=== PATIENT | male | born 1990 | race Caucasian/White ===

== ENCOUNTER 2018-04-28 20:40 | Emergency (ER) | payer OTHER ==
[2018-04-28 20:54] VITALS: BP 134/81; PULSE 115; RESP 18; TEMP 100
[2018-04-28] MEDS ORDERED: LIDOCAINE 1% INJ 10MG/ML (20 ML MDV) SQ ONE (21:19)
[2018-04-28] MEDS ORDERED: ACETAMINOPHEN TAB 500 MG TAB PO STA (21:20)
--- NOTE | 2018-04-28 21:32 | ED ---
Skin/Abscess/FB HPI - General Chief complaint: Skin/Abscess/Foreign Body Stated complaint: Arm abscess Time Seen by Provider: 04/28/18 21:12 Source: patient, RN notes reviewed Mode of arrival: ambulatory Limitations: no limitations - History of Present Illness Initial comments: This is a 28-year-old male who presents to the emergency department with chief complaint of right arm abscess. Patient reports developing abscess on his right forearm 3-5 days ago. He states that he has had a fever for the past few days. He denies any discharge from the abscess. States he has had abscess in the past. Patient has been belligerent and a poor historian. His is at bedside. She states that he is currently prescribed Suboxone from Dr. Jurado in [place]. Patient has a history of opiate abuse. Denies chest pain or shortness of breath, abdominal pain, nausea or vomiting. - Related Data Allergies Allergy/AdvReac Type Severity Reaction Status Date / Time No Known Allergies Allergy Verified 04/28/18 21:34 Review of Systems ROS Statement: Those systems with pertinent positive or pertinent negative responses have been documented in the HPI. ROS Other: All systems not noted in ROS Statement are negative. Past Medical History Past Medical History: Seizure Disorder History of Any Multi-Drug Resistant Organisms: None Reported Past Surgical History: No Surgical Hx Reported Past Psychological History: Anxiety, Bipolar, Depression, Panic Disorder Smoking Status: Former smoker Past Alcohol Use History: None Reported Past Drug Use History: Marijuana General Exam - General Exam Comments Initial Comments: General: Awake and alert, well-developed; in no apparent distress. HEENT: Head atraumatic, normocephalic. Pupils are equal, round and reactive to light. Extraocular movements intact. Oropharynx moist without erythema or exudate. Neck: Supple. Normal ROM. Cardiovascular: Regular rate and rhythm. No murmurs, rubs or gallops. Chest symmetrical. Respiratory: Lungs clear to auscultation bilaterally. No wheezes, rales or rhonchi. Normal respiratory effort with no use of accessory muscles. Musculoskeletal: Normal ROM bilateral upper and lower extremities. Skin: Approximately 4 cm x 4 cm abscess to the proximal right forearm with surrounding erythema down to the right wrist and distal one third of the right upper arm. No active drainage. Pitting edema and warmth of the right arm is noted. Sensation is intact. Radial pulses are 2+ equal and palpable bilaterally. Neurological: Alert and oriented x3. CN II-XII grossly intact. Speech is fluent and answers are appropriate. No focal neuro deficits. Psychiatric: Patient is belligerent, rude and argumentative. Limitations: no limitations Course Vital Signs 04/28/18 20:47 Temperature 100.0 F H Pulse Rate 115 H Respiratory 18 Rate Blood Pressure 134/81 O2 Sat by Pulse 99 Oximetry Procedures - Incision & Drainage Consent Obtained: verbal consent Time Out Performed?: No Indication: abscess Site: upper extremity (right forearm ) Size (cm): 4 (4x4 cm abscess right ventral forearm ) Anesthetic Used: lidocaine 1% Amount (mLs): 3 Scalpel Used: #15 I&D Drainage Obtained: Pus, Blood Culture Obtained?: Yes Patient Tolerated Procedure: well, no complications Medical Decision Making - Medical Decision Making This is a 28-year-old male who presents to the emergency department with chief complaint of abscess. Patient is belligerent, rude and argumentative. Patient yelled numerous times at myself and the nurse. is at bedside. She is pleasant and forthcoming with patient's history. She states the patient does have a history of opiate abuse and is currently taking Suboxone. Patient requests narcotic pain medication, however he is on a pain contract. He is given Tylenol and Toradol in the emergency department. Patient became very angry and upset about this and wanted only narcotic pain medication. He states he has a broad knowledge of medication and has never heard of Toradol. After calming down, patient consented to Toradol via IV. There is a large abscess with surrounding cellulitis on the right forearm. I&D was performed and wound culture obtained. This is pending. An x-ray of the right forearm was ordered to rule out osteomyelitis, however patient refuses. Throughout emergency department stay, patient made multiple comments about leaving AGAINST MEDICAL ADVICE. Patient was found to have a bottle of Valium in his pocket. He was counting them out on his chest. The nurse noticed this and told patient he was not allowed to have them here in the hospital. Patient again became very angry and upset and said he was signing out AGAINST MEDICAL ADVICE. I strongly advised admission to the hospital for IV antibiotics. Risks of leaving AMA were discussed including sepsis, loss of limb, loss of life. Patient refuses to stay. Condition is fair. Patient escorted out of the emergency department by security. - Lab Data Result diagrams: 04/28/18 21:29 04/28/18 21:29 Lab Results 04/28/18 04/28/18 04/28/18 Range/Units 21:29 21:29 21:29 WBC 14.8 H (3.8-10.6) k/uL RBC 4.40 (4.30-5.90) m/uL Hgb 13.8 (13.0-17.5) gm/dL Hct 41.3 (39.0-53.0) % MCV 93.9 (80.0-100.0) fL MCH 31.4 (25.0-35.0) pg MCHC 33.4 (31.0-37.0) g/dL RDW 13.2 (11.5-15.5) % Plt Count 268 (150-450) k/uL Neutrophils % 83 % Lymphocytes % 9 % Monocytes % 7 % Eosinophils % 1 % Basophils % 0 % Neutrophils # 12.3 H (1.3-7.7) k/uL Lymphocytes # 1.3 (1.0-4.8) k/uL Monocytes # 1.0 (0-1.0) k/uL Eosinophils # 0.1 (0-0.7) k/uL Basophils # 0.0 (0-0.2) k/uL Sodium 139 (137-145) mmol/L Potassium 4.9 (3.5-5.1) mmol/L Chloride 106 (98-107) mmol/L Carbon Dioxide 20 L (22-30) mmol/L Anion Gap 13 mmol/L BUN 16 (9-20) mg/dL Creatinine 1.10 (0.66-1.25) mg/dL Est GFR (CKD-EPI)AfAm >90 (>60 ml/min/1.73 sqM) Est GFR (CKD-EPI)NonAf 90 (>60 ml/min/1.73 sqM) Glucose 118 H (74-99) mg/dL Plasma Lactic Acid Saroj 1.3 (0.7-2.0) mmol/L Calcium 9.5 (8.4-10.2) mg/dL Total Bilirubin 0.4 (0.2-1.3) mg/dL AST 168 H (17-59) U/L ALT 126 H (21-72) U/L Alkaline Phosphatase 110 (38-126) U/L Total Protein 8.0 (6.3-8.2) g/dL Albumin 4.4 (3.5-5.0) g/dL Disposition Clinical Impression: Abscess of arm, right Disposition: Left Against Medical Advice Condition: Fair Instructions: Cellulitis (ED), Abscess (ED) Is patient prescribed a controlled substance at d/c from ED?: No Referrals: None,Stated [REFERRING] - 1-2 days Time of Disposition: 22:51
[2018-04-28 21:43] LABS: Basophils % (A) 0 %; Eosinophils # (A) 0.1 k/uL (0-0.7); Eosinophils % (A) 1 %; HCT 41.3 % (39.0-53.0); HGB 13.8 gm/dL (13.0-17.5); Lymphocytes # (A) 1.3 k/uL (1.0-4.8); Lymphocytes % (A) 9 %; MCH 31.4 pg (25.0-35.0); MCHC 33.4 g/dL (31.0-37.0); MCV 93.9 fL (80.0-100.0); Mean Platelet Volume 7.3; Monocytes % (A) 7 %; Neutrophils # (A) 12.3 k/uL (1.3-7.7); Neutrophils % (A) 83 %; Platelet Count 268 k/uL (150-450); RDW 13.2 % (11.5-15.5); WBC 14.8 k/uL (3.8-10.6)
[2018-04-28 21:53] LABS: ALT 126 U/L (21-72); AST 168 U/L (17-59); Albumin 4.4 g/dL (3.5-5.0); Alkaline Phosphatase 110 U/L (38-126); Anion Gap 13 mmol/L; Calcium 9.5 mg/dL (8.4-10.2); Carbon Dioxide 20 mmol/L (22-30); Chloride 106 mmol/L (98-107); Glucose 118 mg/dL (74-99); Potassium 4.9 mmol/L (3.5-5.1); Sodium 139 mmol/L (137-145); Total Bilirubin 0.4 mg/dL (0.2-1.3)
[2018-04-28 21:56] LABS: Blood Urea Nitrogen 16 mg/dL (9-20)
[2018-04-28] MEDS ORDERED: KETOROLAC 30 MG/ML 1 ML VIAL IVP STA (22:34)
== END 2018-04-28 23:25 | disposition left against medical advice (07) ==
LOC: EC 20:40
DX: L02.413 Cutaneous abscess of right upper limb (principal); F11.10 Opioid abuse, uncomplicated; Z87.891 Personal history of nicotine dependence; Z79.899 Other long term (current) drug therapy; Z53.20 Procedure and treatment not carried out because of patient's decision for unspecified reasons
CPT/HCPCS: 36415; 80053; 83605; 85025; 87040; 87070; 87205; 99283; 10060; J2001